=== PATIENT | male | born 1950 | race Caucasian/White ===

== ENCOUNTER 2017-10-09 05:48 | Inpatient (IN) | payer OTHER ==
[2017-10-09] MEDS ORDERED: ceFAZolin 2 GM/SWFI 2 GM/20 ML SYR IVP ONE (06:00)
[2017-10-09] MEDS ORDERED: DEXAMETHASONE 4 MG/ML VIAL IVP ONE (06:00)
[2017-10-09] MEDS ORDERED: FAMOTIDINE 20 MG TAB PO ONE (06:00)
[2017-10-09] MEDS ORDERED: POVIDONE-IODINE 20 ML in SODIUM CL IRRIG SOLUTION 500 ML IRR ONE (06:00)
[2017-10-09] MEDS ORDERED: TRANEXAMIC ACID 800 MG in NS 100 ML IV ONE (06:00)
[2017-10-09] MEDS ORDERED: ACETAMINOPHEN 325 MG TAB PO ONE (06:00)
[2017-10-09] MEDS ORDERED: ROPIVACAINE 0.2% 80 MG, EPINEPHrine 0.2 MG, KETOROLAC TROMETHAMINE 30 MG in SYRINGE 0 ML IU ONE (06:00)
[2017-10-09] MEDS ORDERED: GABAPENTIN 300 MG CAP PO ONE (06:00)
[2017-10-09] MEDS ORDERED: ROPIVACAINE 0.2% 80 MG, EPINEPHrine 0.2 MG, KETOROLAC TROMETHAMINE 30 MG in BAG 0 ML IU ONE (06:00)
--- NOTE | 2017-10-09 06:42 | PDANEPAE ---
ANE History of Present Illness 67 year old male presents for right total knee arthroplasty. ANE Past Medical History - Cardiovascular History Hx Hypertension: No Hx Arrhythmias: No Hx Chest Pain: No Hx Coronary Artery / Peripheral Vascular Disease: No Hx CHF / Valvular Disease: No Hx Palpitations: No - Pulmonary History Hx COPD: No Hx Asthma/Reactive Airway Disease: No Hx Recent Upper Respiratory Infection: No Hx Oxygen in Use at Home: No Hx Sleep Apnea: No Sleep Apnea Screening Result - Last Documented: Negative - Neurologic History Hx Cerebrovascular Accident: No Hx Seizures: No Hx Dementia: No - Endocrine History Hx Diabetes: No Hypothyroid: No Hyperthyroid: No Obesity: no - Renal History Hx Renal Disorders: No - Liver History Hx Hepatic Disorders: No - Neurological & Psychiatric Hx Hx Neurological and Psychiatric Disorders: No - Cancer History Hx Cancer: No - Congenital Disorder History Hx Congenital Disorders: No - GI History GERD: no Hx Gastrointestinal Disorders: No - Other Health History Other Health History: OSTEOARTHRITIS - Chronic Pain History Chronic Pain: Yes (RT KNEE) - Surgical History Prior Surgeries: RT KNEE MENISCUS REPAIR 1970 ANE Review of Systems Review of systems is: negative Review of Systems: - Exercise capacity Exercise capacity: >=4 METS METS (RN): 6 METS - Systems Muscolosketal: Reports: joint pain (knee) ANE Patient History - Allergies Allergies/Adverse Reactions: No Known Allergies Allergy (Unverified 08/29/17 11:27) - Home Medications Home medications: home medication list seen and reviewed Home Medications: Ibuprofen [Motrin (*)] 200 mg PO DAILY PRN 08/29/17 [Last Taken 10/02/17] - NPO status NPO Status: no food or drink >8 hours NPO Since - Liquids (Date): 10/08/17 NPO Since - Liquids (Time): 23:55 NPO Since - Solids (Date): 10/08/17 NPO Since - Solids (Time): 22:00 - Anes Hx Anes Hx: no prior problems - Smoking Hx Smoking Status: Former smoker Marijuana use: No - Alcohol Use Alcohol Use: Rarely - Family Anes Hx Family Anes Hx: neg - N/A Family Hx Anesthesia Complications: NEG ANE Labs/Vital Signs - Labs Result Diagrams: 10/09/17 06:42 - Vital Signs Vital Signs: reviewed preoperatively; see RN documention for details Blood Pressure: 127/70 Heart Rate: 65 Respiratory Rate: 16 O2 Sat (%): 91 Height: 185.42 cm Weight: 81.647 kg ANE Physical Exam - Airway Neck exam: FROM Mallampati Score: Class 2 Mouth exam: normal dental/mouth exam - Pulmonary Pulmonary: no respiratory distress - Cardiovascular Cardiovascular: regular rate and rhythym - ASA Status ASA Status: I ANE Anesthesia Plan Anesthesia Plan: GA w LMA (General anesthesia as back-up plan only.), MAC, spinal Regional Anesthesia: single shot NB, adductor canal FNB, POPC/PSR Total IV Anesthesia: No
[2017-10-09] MEDS ORDERED: VANCOMYCIN 1 GM VIAL ONE (06:53)
[2017-10-09] MEDS ORDERED: ceFAZolin 1 GM/5 ML SYR ONE (06:53)
[2017-10-09 06:56] LABS: % IMMATURE GRANULYOCYTES 0.2 % (0.0-1.1); ABSOLUTE IMMATURE GRANULOCYTES 0.01 10^3/uL (0.00-0.10); ADD DIFF? NO; ADD MORPH? NO; ADD SCAN? NO; ATYPICAL LYMPHOCYTE FLAG 0 (0-99); FRAGMENT RBC FLAG 0 (0-99); HEMATOCRIT 45.4 % (40.0-51.0); HEMOGLOBIN 16.1 g/dL (13.7-17.5); LEFT SHIFT FLG 0 (0-99); LIPEMIA HEMOLYSIS FLAG 90 (0-99); MEAN CELL HEMOGLOBIN 31.1 pg (27.9-34.1); MEAN CELL HEMOGLOBIN CONCENTR. 35.5 g/dL (32.4-36.7); MEAN CELL VOLUME 87.8 fL (81.5-99.8); MEAN PLATELET VOLUME 11.1 fL (8.7-11.7); PLATELET CLUMPS FLAG 0 (0-99); PLATELET COUNT 123 10^3/uL (150-400); RED BLOOD CELL COUNT 5.17 10^6/uL (4.40-6.38); RED CELL DISTRIBUTION WIDTH 12.9 % (11.5-15.2)
[2017-10-09] MEDS ORDERED: MIDAZOLAM 2 MG/2 ML VIAL IVP ONE (07:06)
--- NOTE | 2017-10-09 07:06 | PDHPUP ---
History & Physical Update H&P update statement: This history and physical update is based on an assessment of the patient which was completed after admission or registration (within 24 hours), but prior to the surgery/procedure. H&P update: H&P reviewed & patient examined, no change in patient's condition since H&P completed
[2017-10-09] MEDS ORDERED: PROPOFOL/EMULSION 500 MG/50 ML BOTTLE IV ONE (07:10)
[2017-10-09] MEDS ORDERED: MIDAZOLAM 2 MG/2 ML VIAL ONE (07:11)
[2017-10-09] MEDS ORDERED: ROPIVACAINE HCL 150 MG/30 ML INJ ONE (07:52)
[2017-10-09] MEDS ORDERED: PROPOFOL 200 MG/20 ML VIAL ONE (08:45)
--- NOTE | 2017-10-09 09:10 | POSTOPPROG ---
Post Op Note Date of Operation: 10/09/17 Surgeon: Mehran Rankin Fourdrinier Machine Operator: Max De La Cruz/Jacob Reyes Anesthesiologist: Dr. Max Sinha Anesthesia: IV Sedation, Spinal Post-op Diagnosis: Right knee severe degenerative arthritis. Procedure: 1. Right total knee arthroplasty, cemented, Beasley and Nephmeir Velasquez 2. Inf/Abcess present in the surg proc area at time of surgery?: No EBL: 50-100 (Adductor canal block in PACU with indwelling catheter.)
[2017-10-09] MEDS ORDERED: NS 500 ML IV PRN (09:19)
[2017-10-09] MEDS ORDERED: POLYETHYLENE GLYCOL 3350 17 GM PKT PO PRN (09:19)
[2017-10-09] MEDS ORDERED: ONDANSETRON DISINTEGRATING 4 MG TAB PO PRN (09:19)
[2017-10-09] MEDS ORDERED: traMADol 50 MG TAB PO PRN (09:19)
[2017-10-09] MEDS ORDERED: CYCLOBENZAPRINE 10 MG TAB PO PRN (09:19)
[2017-10-09] MEDS ORDERED: DIPHENOXYLATE/ATROPINE LOMOTIL 1 TAB PO PRN (09:19)
[2017-10-09] MEDS ORDERED: BISACODYL 10 MG SUPP PR PRN (09:19)
[2017-10-09] MEDS ORDERED: diphenhydrAMINE 25 MG CAP PO PRN (09:19)
[2017-10-09] MEDS ORDERED: PROMETHAZINE HCL 25 MG/ML INJ IVP PRN (09:19)
[2017-10-09] MEDS ORDERED: ONDANSETRON 4 MG/2 ML VIAL IVP PRN ×2 (09:19→10:36)
[2017-10-09] MEDS ORDERED: TEMAZEPAM 15 MG CAP PO PRN (09:19)
[2017-10-09] MEDS ORDERED: METOCLOPRAMIDE 10 MG/2 ML VIAL IVP PRN (09:19)
[2017-10-09] MEDS ORDERED: LACTULOSE 20 GM/30 ML UDCUP PO PRN (09:19)
[2017-10-09] MEDS ORDERED: MAGNESIUM HYDROXIDE 30 ML UDCUP PO PRN (09:19)
[2017-10-09] MEDS ORDERED: KETOROLAC 30 MG/1 ML SDV IVP PRN (09:19)
[2017-10-09] MEDS ORDERED: PROMETHAZINE HCL 25 MG SUPPR PR PRN (09:19)
[2017-10-09] MEDS ORDERED: LR 1,000 ML IV SCH (09:30)
--- NOTE | 2017-10-09 09:56 | GOP ---
[f rep st] OPERATIVE REPORT DATE OF OPERATION: 10/09/2017 SURGEON: Mehran Rankin MD PLUMBER ASSISTANT: Jorge De La Cruz, WIN, and Jacob Reyes [facility] ANESTHESIA: Combination of Marcaine spinal, IV sedation, and adductor canal block. ANESTHESIOLOGIST: Jorge Sinha MD PREOPERATIVE DIAGNOSIS: Right knee degenerative arthritis. POSTOPERATIVE DIAGNOSIS: 1. Right knee degenerative arthritis. 2. 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 PROCEDURE PERFORMED: 1. Right total knee arthroplasty, cemented, Beasley and Nephew Journey II, posterior stabilized. 2. Right knee synovectomy. FINDINGS: ESTIMATED BLOOD LOSS: Following placement of the tourniquet was about 100 cc. The sponge and needle counts were correct on 2 occasions. He was awakened from anesthesia, transferred to his gurney, and taken to PACU in satisfactory conditi on. There were no recognized intraoperative complications. In the PACU, for additional postoperativ e pain control, Dr. Sinha performed an adductor canal block with an indwelling catheter. Max De La Cruz and Jacob Reyes acted as surgical assistants. Their assistance was a medical necess ity. DESCRIPTION OF PROCEDURE: The patient was given 2 g of IV Ancef preoperatively within 60 minutes of surgery. He also received IV tranexamic acid at a dose of 10 mg/kg. He was placed on the operating room table and given spinal anesthesia with Marcaine by Dr. Sinha. He was then placed supine and gi saleem IV sedation. A Bradshaw catheter was not used. He wore a CONSTANZA stocking and SCD on the nonoperative leg. His right lower extremity was prepped with ChloraPrep from the upper thigh tourniquet to the ti ps of the toes. It was draped free using sterile sheets, stockinette, and Ioban plastic adhesive dra conway. His right lower leg was wrapped with compressive Coban. The leg was exsanguinated with elevatio n and a 6-inch compressive wrap, and the tourniquet was inflated to 250 mmHg. The World Health Organization time-out was performed to verify the correct patient identity and the c orrect surgical side and site. The Velarde time-out was also performed. The Locaid leg holding device was sterilely attached to the operating room table and used throughout the procedure to help position the knee. A straight midline incision made centered on the patella. Subcutaneous tissues were sharply divided, and hemostasis was obtained using electrocautery. A media l subcutaneous flap was developed, and the capsule and synovium were opened in a medial parapatellar fashion. Very extensive degenerative changes were present in all 3 compartments. He had extensive pr oliferation and thickening of the synovial lining. The synovial lining was pigmented and this appear ed to be hemosiderin pigmentation. His remaining articular cartilage was discolored to a baxter-black color. He was eroded down to subchondral bone on the lateral femoral condyle and the lateral tibial plateau. The medial capsule and periosteum were elevated off the rim and medial tibial plateau, all the way around to the posteromedial corner. His medial collateral ligament was lightly released. In order to improve exposure, the patella was prepared first. The original thickness of the patella was measured. The articular cartilage of the patella was similarly discolored to a grayish-black col or. Peripheral osteophytes were removed. I cut a flat surface on the back of the patella. It was s ized for a 41 mm resurfacing component. I removed enough bone from the patella such that the remaini ng bone plus the thickness of the patellar component recreated the original thickness of the patella. The composite thickness was 25 mm. The intramedullary alignment guide system was used to set up the distal femoral cut. The distal femu r was cut in 5 degrees of valgus. Because of a 10-degree preoperative flexion contracture, I made a +2 mm cut on the distal femur. The sizing jig was used to determine proper femoral sizing. I shifte d the A-jig anteriorly 2 mm in order to accommodate the size 8 without notching the anterior cortex. The 5-in-1 cutting block was applied, and the anterior and posterior condylar cuts and chamfer cuts were made. The final jig was used to remove the central portion of the distal femur to accommodate t he posterior stabilized femoral component. I was careful to determine proper rotation by referencing off Whitesides line and other bony landmarks. Each cut was checked for accuracy before and after it was made. The femur was sized for a size 8 posterior stabilized component. The trial component was tapped securely into place and was a good fit. Next, the tibia was prepared. The proximal tibial cut was made using the extramedullary alignment gu roel system. The cut was made in a few degrees of posterior slope. I was careful to achieve proper v arus/valgus alignment and proper rotation. The posterior compartment was cleared of meniscal remnant s. Osteophytes were removed from the back of his femoral condyles. I checked the flexion and extens ion gaps, and they were equal, balanced and rectangular. The tibia was sized for a size 7 component. With the trial components in place, I selected a 10 mm polyethylene posterior stabilized tibial ins ert. The knee came to full extension and flexed to 125 degrees. There was no overstuffing in flexio n. The collateral ligaments were stable and balanced in 90 degrees of flexion and full extension. T he trial patellar button was applied, and tracking was checked. Tracking was excellent without any d igital pressure. 40 mL of the joint anesthetic cocktail was injected into the posterior capsule, the periarticular str uctures, the quadriceps muscle and tendon areas, and the subcutaneous tissues along the skin edges. A second dose of tranexamic acid was given at a dose of 10 mg/kg. The surfaces were prepared for cementing. They were carefully cleaned with the pulsating lavage and carefully dried. The CarboJet device was used to blow dry the cancellous surfaces. A double batch o f high viscosity methylmethacrylate cement with 2 g of powdered vancomycin added was mixed. While it was still in a doughy state, all 3 components were cemented in place. Excess cement was removed bef ore it hardened. The 10 mm trial tibial insert was re-tried and was the proper thickness. The actual component was in serted and locked into place. The knee was thoroughly irrigated one final time with a dilute Betadin e solution. The tourniquet was deflated and the total tourniquet time was 55 minutes. The vastus medialis portion of the extensor mechanism was repaired with several interrupted figure-of -eight #2 FiberWire sutures. The capsule and synovium were closed with multiple interrupted figure-o f-eight 0 PDS sutures. Subcutaneous tissues were closed with a running 0 barbed Ethicon Stratafix Mo noderm suture. The skin was closed with a running 3-0 barbed Ethicon Stratafix Monoderm subcuticular suture. The skin was sealed with half-inch Steri-Strips. The wound was covered with a large steril e Mepilex surgical waterproof dressing and a 6-inch compressive wrap. A long-leg CONSTANZA stocking and SC D were applied, followed by the cooling device. The patient wore a stocking and SCD on the opposite leg during the procedure. I used a size 8 Beasley and Nephew cemented Oxinium posterior stabilized femoral component, a size 7 ce mented tibial base plate, a 10 mm posterior stabilized tibial insert, and a 41 mm cemented round all- polyethylene resurfacing patellar component. Copy requested to: Dr. Mehran Shaw /[id number]/MODL
[2017-10-09] MEDS ORDERED: fentaNYL 100 MCG/2 ML INJ IVP PRN (10:36)
[2017-10-09] MEDS ORDERED: HYDROmorphONE/DILAUDID 1 MG/ML INJ IVP PRN (10:36)
[2017-10-09] MEDS ORDERED: LR 500 ML IV PRN (10:36)
[2017-10-09] MEDS ORDERED: NALOXONE HCL 0.4 MG/ML INJ IVP PRN (10:36)
[2017-10-09] MEDS: ACETAMINOPHEN 325 MG TAB PO SCH ×3 (11:44→23:35)
--- NOTE | 2017-10-09 13:27 | ASMTCMCOM ---
CM Note CM Note Notes: Patient is POD #[address] Rankin. Per his pre-op call, patient plans to discharge home with his who is an RN. He has some DME at home and has scheduled outpatient PT already. If his needs change, Case Management will assist. Current CM Discharge plan: home with outpatient PT Date Signed: 10/09/2017 01:27 PM Electronically Signed By:Yeni Hernández RN
[2017-10-09] MEDS: ceFAZolin 2 GM/DEXTROSE 100 ML IV SCH ×2 (13:54→20:28)
[2017-10-09] MEDS: oxyCODONE IR 5 MG TAB PO PRN (13:58)
[2017-10-09] MEDS: TRANEXAMIC ACID 650 MG TAB PO SCH ×2 (15:40→23:36)
[2017-10-09 15:53] VITALS: RESP 16
--- NOTE | 2017-10-09 17:16 | POSTANESTH ---
Post Anesthetic Evaluation Cardiovascular Status: Normal, Stable, Similar to Pre-Op Cond Respiratory Status: Normal, Stable, Similar to Pre-op Cond. Level of Consciousness/Mental Status: Can Participate in Eval, Alert and Oriented Pain Control: Adequate, Prn Tx Ordered Nausea/Vomiting Control: Adequate, Prn Tx Ordered Complications Possibly Related to Anesthesia: None Noted
[2017-10-09] MEDS: SENNOSIDES/DOCUSATE SODIUM TAB PO SCH (20:27)
[2017-10-09] MEDS: ASPIRIN 325 MG TAB PO SCH (20:28)
[2017-10-09] MEDS: FAMOTIDINE 20 MG TAB PO SCH (21:08)
[2017-10-10] MEDS: ACETAMINOPHEN 325 MG TAB PO SCH ×2 (05:36→11:47)
[2017-10-10 05:46] LABS: HEMATOCRIT 37.2 % (40.0-51.0); HEMOGLOBIN 12.9 g/dL (13.7-17.5)
[2017-10-10] MEDS ORDERED: ROPIVACAINE HCL 150 MG/30 ML INJ ONE (06:55)
--- NOTE | 2017-10-10 07:35 | SOAPPROG ---
SOAP Progress Note Assessment/Plan: Assessment: Afebrile. Awake and alert. Minimal pain. He has been up and walking. He required straight urinary catheter 1 time yesterday, but he has been able to void spontaneously since then. Postop H&H are good. Postop films look excellent. This morning Dr. Max Sinha is reinjecting the adductor canal block. After that the catheter will be removed. Plan: Physical therapy this morning for walking and stairs. Discharge later today. 10/10/17 07:33 Objective: Vital Signs Temp Pulse Resp BP Pulse Ox 36.4 C 70 16 102/58 L 94 10/10/17 04:00 10/10/17 04:00 10/10/17 04:00 10/10/17 04:00 10/10/17 04:00 Laboratory Results 10/10/17 05:25 10/09/17 10/10/17 10/11/17 05:59 05:59 05:59 Intake Total 2215 Output Total 1800 Balance 415 ICD10 Worksheet Patient Problems: Problems Problem Status Onset Osteoarthritis of right knee Acute
--- NOTE | 2017-10-10 07:38 | POSTANESTH ---
Post Anesthetic Evaluation Cardiovascular Status: Normal, Stable, Similar to Pre-Op Cond Respiratory Status: Normal, Stable, Similar to Pre-op Cond. Level of Consciousness/Mental Status: Can Participate in Eval, Alert and Oriented Pain Control: Adequate, Prn Tx Ordered Nausea/Vomiting Control: Adequate, Prn Tx Ordered Complications Possibly Related to Anesthesia: None Noted (This note created to document POD #1 follow-up and details surrounding indwelling catheter in right adductor canal. Patient did well overnight with regards to pain. Spinal completely worn off and patient spontaneously urinating. Adductor canal catheter inspected, no migration observed at the skin (same position I fixed it yesterday morning). Patient placed on monitors (ECG, SpO2, NIBP). Catheter tip cleaned with chlorhexidine prep (scrubbed hub 15 seconds) and allowed to air dry. Syringe with ropivicaine connected to catheter. Aspiration performed with no return of blood. Ropivicaine 0.5% 18ml total volume injected ( aspiration every 3ml of injection to confirm still negative for heme.). Patient monitored throughout procedure. Process started at 07:15am. Patient's vitals monitored by anesthesiologist during this process until 07:36 with no change in ECG rhythm or heart rate. Patient denies any symptoms of L.A.S.T ( ringing in ears, metalic taste, etc.) Adductor canal catheter removed. Skin clean, dry and intact under dressing.)
--- NOTE | 2017-10-10 08:01 | GDS ---
[f rep st] DISCHARGE SUMMARY ADMISSION DIAGNOSIS: Right knee severe degenerative arthritis. DISCHARGE DIAGNOSIS: Right knee severe degenerative arthritis. OPERATION PERFORMED: 10/09/2017, a right total knee arthroplasty. POSTOPERATIVE COMPLICATIONS: None. CONDITION ON DISCHARGE: Improved. DESCRIPTION OF HOSPITAL COURSE: The patient was admitted to the hospital on the morning of surgery. His admission CBC was normal except for a platelet count of 123,000. The same day, under a combinat ion of Marcaine spinal, IV sedation, and adductor canal block, he underwent a right total knee arthro plasty. We used an indwelling adductor canal block catheter. Postoperatively, he was treated with multimodal DVT prophylaxis including aspirin. On the first post operative day, his hemoglobin and hematocrit were 12.9 and 37.1. He required a single straight urina ry catheterization on the evening of surgery. He was able to void spontaneously after that. On the first postoperative day, Dr. Sinha reinjected the adductor canal block and then removed the catheter . He was seen by Physical Therapy and made good progress with ambulation and stairs. By the time of discharge, he was afebrile and was independent walking. DISPOSITION: The patient is discharged to his home. He will have outpatient physical therapy in my office next week. Continue aspirin 325 mg p.o. daily for 21 days. He has prescriptions for oxycodon e and tramadol for pain control. I will see him back in the office on 10/25/2017. If there are any problems, he is to call me at the office. Copy requested to: Dr. Mehran Shaw /[id number]/MODL
[2017-10-10 08:18] VITALS: BP 112/80; PULSE 68; TEMP 98.3; O2SAT 92
[2017-10-10] MEDS: ASPIRIN 325 MG TAB PO SCH (08:36)
[2017-10-10] MEDS: FAMOTIDINE 20 MG TAB PO SCH (08:37)
[2017-10-10] MEDS: SENNOSIDES/DOCUSATE SODIUM TAB PO SCH (08:37)
[2017-10-10] MEDS: TRANEXAMIC ACID 650 MG TAB PO SCH (08:37)
[2017-10-10] MEDS ORDERED: FERROUS SULFATE 140 MG TAB.ER PO SCH (09:00)
[2017-10-10] MEDS: oxyCODONE IR 5 MG TAB PO PRN ×2 (11:12→11:48)
== END 2017-10-10 12:00 | disposition home or self-care (01) | DRG 470 ==
LOC: F3N 05:48
PROVIDERS: ADMIT Orthopaedic Surgery; ATTEND Orthopaedic Surgery
PROC: 0SRC069 Replacement of Right Knee Joint with Oxidized Zirconium on Polyethylene Synthetic Substitute, Cemented, Open Approach (ICD-10-PCS; principal; 2017-10-09 07:15)
DX: M17.11 Unilateral primary osteoarthritis, right knee (principal)
CPT/HCPCS: 97110-GP; 97116-GP; 97161-GP; 97165-GO; 97530-GP; C1713; G8978-GP-CI; G8979-GP-CI; G8980-GP-CI; G8987-GO-CI; G8988-GO-CI; G8989-GO-CI; J0171; J0690; J1100; J1885; J2250; J2704; J2795; J3370